=== PATIENT | male | born 1955 | race Caucasian/White ===

== ENCOUNTER → 2017-05-04 | Outpatient (CLI) | payer BC ==
[~2017-05-04] MED LIST: AUGMENTIN 875875 MG PO; CLARITIN10 MG PO; CRESTOR10 MG PO; DILTIAZEM ER120 MG PO; DILTIAZEM240 MG PO; DULE1ARO1 INH; DULERA100 PO; FISH OIL 1,2001 EACH PO; MSM1000 M3 PO; NEXIUM I.V.40 MG PO; PEPCID20 MG PO; PROAIR HFA0.09 MG/AC PO; TRULICITY0.75 MG/0. SC; VITAMIN E400 UNIT PO; ZOCOR20 MG; ZOFRAN4 MG PO
== END | disposition home or self-care (01) ==
LOC: US 07:06
DX: K76.0 Fatty (change of) liver, not elsewhere classified (principal); K80.20 Calculus of gallbladder without cholecystitis without obstruction

== ENCOUNTER 2018-03-14 11:50 | Inpatient (IN) | payer BC ==
[~2018-03-14] VITALS: Ht 180.3 cm; Wt 94.4 kg
--- NOTE | ~2018-03-14 | EKG ---
[place], [place] ELECTROCARDIOGRAM REPORT NAME: PRINCE IBARRA UNIT #: [id number] ROOM: 507 DOCTOR: ARVIND DRAFT REPORT BIRTHDATE: [birth year] [facility] Test Date: 2018-03-14 Test Time: 16:31:59 Pat Name: PRINCE IBARRA Department: Room: Gender: M Addictions Counselor Assistant: ARMAND : 1955 Requested By: TERRY CLARK Order Number: [id number] Reading MD: Jason Shin MD Measurements Intervals [place] Rate: 56 P: 76 RI: 154 QRS: 52 QRSD: 85 T: 51 QT: 432 QTc: 417 Interpretive Statements Sinus rhythm Supraventricular bigeminy Minimal ST depression, anterolateral leads Baseline wander in lead(s) V1 No change from earlier ECG this date. Electronically Signed On 03-14-2018 21:05:40 PDT by Jason Shin MD CM:EKGRPT:ELECTROCARDIOGRAM REPORT 1631 04 TERRY SAMUELS DRAFT REPORT TERRY CLARK MD
--- NOTE | ~2018-03-14 | EKG ---
[place], [place] ELECTROCARDIOGRAM REPORT NAME: PRINCE IBARRA UNIT #: [id number] ROOM: 507 DOCTOR: ARVIND DRAFT REPORT BIRTHDATE: [birth year] [facility] Test Date: 2018-03-14 Test Time: 12:09:03 Pat Name: PRINCE IBARRA Department: Room: Gender: Drawer Maker: KINZA : 1955 Requested By: TERRY CLARK Order Number: [id number] Reading MD: Jason Shin MD Measurements Intervals [place] Rate: 65 P: 69 CT: 155 QRS: 39 QRSD: 83 T: 30 QT: 427 QTc: 444 Interpretive Statements Sinus rhythm Supraventricular bigeminy Abnormal inferior Q waves Electronically Signed On 03-14-2018 20:53:00 PDT by Jason Shin MD CM:EKGRPT:ELECTROCARDIOGRAM REPORT [id number] 52 TERRY SAMUELS DRAFT REPORT TERRY CLARK MD
--- NOTE | ~2018-03-14 | PR ---
[place], [place] PROGRESS NOTE NAME: PRINCE IBARRA [facility] #: [id number] UNIT #: [id number] ROOM: 504 DOCTOR: BRANNON LAMB MD BIRTHDATE: [birth year] DOS: 03/15/2018 CARDIOLOGY PROGRESS NOTE SUBJECTIVE: The patient was seen today on 03/15/2018 in the Cardiology Department just prior to his stress test. He is a 62-year-old man who has several risk factors for coronary artery disease and presented with typical chest discomfort as well as severe elevation in his blood pressure. Serial cardiac biomarkers were normal. His medications were adjusted and his blood pressure is coming under control. In order to evaluate him further, we will proceed with a stress test today. PHYSICAL EXAMINATION: VITAL SIGNS: His pulse is 63 and regular, blood pressure is 152/81. He is afebrile. NECK: Supple. He has no jugular distention. Carotids are full. LUNGS: Respirations are unlabored. His chest is clear to auscultation and percussion. HEART: Has regular rhythm and S4 gallop, but no S3 or murmur. ABDOMEN: Soft. EXTREMITIES: Showed no edema. IMPRESSION: 1. Atypical chest pain. 2. Essential hypertension, out of control. 3. Type 2 diabetes mellitus. 4. Gastroesophageal reflux disease. 5. Chronic obstructive pulmonary disease. PLAN: We will proceed with an exercise myocardial perfusion study. Further recommendations will depend upon the results of the stress test. We will need to continue working on controlling his blood pressure. BRANNON LAMB MD CM:PNTRANS [id number] BRANNON LAMB MD 03/15/18 1046 interface
--- NOTE | ~2018-03-14 | EKG ---
[place], [place] ELECTROCARDIOGRAM REPORT NAME: PRINCE IBARRA UNIT #: [id number] ROOM: 507 DOCTOR: ARVIND DRAFT REPORT BIRTHDATE: [birth year] [facility] Test Date: 2018-03-14 Test Time: 18:03:07 Pat Name: PRINCE IBARRA Department: Room: Gender: M Security Screener: ARMAND : 1955 Requested By: TERRY CLARK Order Number: [id number] Reading MD: Jason Shin MD Measurements Intervals [place] Rate: 60 P: 63 AL: 151 QRS: 53 QRSD: 87 T: 49 QT: 424 QTc: 424 Interpretive Statements Sinus rhythm Supraventricular bigeminy Abnormal R-wave progression, early transition No change from earlier ECG this date. Electronically Signed On 03-14-2018 21:09:10 PDT by Jason Shin MD CM:EKGRPT:ELECTROCARDIOGRAM REPORT 02 08 TERRY SAMUELS DRAFT REPORT TERRY CLARK MD
[2018-03-14 11:52] VITALS: BP 173/80
[2018-03-14] MEDS ORDERED: ZYRTEC10 M3 PO (12:08)
[2018-03-14 12:15] LABS: BASO # 0.1 10*3/uL (0.0-0.1); BASO % 0.8 % (0.0-1.0); EOS # 0.1 10*3/uL (0.0-0.4); HEMATOCRIT 46.2 % (42.0-52.0); HEMOGLOBIN 15.8 g/dl (14.0-18.0); LYMPH # 2.9 10*3/uL (1.3-4.4); LYMPH % 32.8 % (27.0-41.0); MEAN CELL VOLUME 90.4 fl (80.0-94.0); MEAN CORPUSCULAR HGB 30.9 pg (27.0-31.0); MEAN CORPUSCULAR HGB CONC 34.2 g/dl (33.0-37.0); MEAN PLATELET VOLUME 11.4 fl (9.6-12.3); MONO # 0.5 10*3/uL (0.1-1.0); NEUT # 5.2 10*3/uL (2.3-7.9); NEUT % 59.2 % (47.0-73.0); PLATELET COUNT AUTOMATED 286 10*3/uL (130-400); RED BLOOD COUNT 5.11 10*6/uL (4.50-5.90); WHITE BLOOD COUNT 8.8 10*3/uL (4.8-10.8)
[2018-03-14 12:24] LABS: ACT PARTIAL THROMBO TIME 23.5 SECONDS (20.8-31.5)
[2018-03-14 12:33] LABS: ALBUMIN 4.3 gm/dl (3.1-4.5); ALKALINE PHOSPHATASE 115 U/L (45-117); BUN 12 mg/dl (7-24); CHLORIDE 104 mmol/L (98-107); CREATININE 1.22 mg/dL (0.70-1.30); POTASSIUM 4.5 mmol/L (3.5-5.1); SGOT/AST 43 IU/L (3-35); SGPT/ALT 117 U/L (12-78); SODIUM 140 mmol/L (136-145); TOTAL PROTEIN 7.3 gm/dL (6.4-8.2)
[2018-03-14 12:34] VITALS: BP 161/86
[2018-03-14 12:35] LABS: TROPONIN I < 0.015 ng/ml (<0.045)
[2018-03-14] MEDS ORDERED: Lopressor25 MG PO (13:27)
[2018-03-14] MEDS ORDERED: OMEPRAZOLE40 MG PO (13:27)
[2018-03-14] MEDS ORDERED: PROAIR HFA8.5 GM INH (13:58)
[2018-03-14 14:00] VITALS: BP 170/74
[2018-03-14] MEDS ORDERED: B12,B-12,B 12500 MC1 PO (14:00)
[2018-03-14 16:00] VITALS: BP 154/80
[2018-03-14 20:00] VITALS: BP 157/83
[2018-03-15] VITALS: BP 142/78
[2018-03-15 06:30] LABS: BASO # 0.1 10*3/uL (0.0-0.1); BASO % 0.6 % (0.0-1.0); EOS # 0.2 10*3/uL (0.0-0.4); EOS % 1.2 % (1.0-4.0); HEMATOCRIT 50.3 % (42.0-52.0); HEMOGLOBIN 17.3 g/dl (14.0-18.0); LYMPH # 4.1 10*3/uL (1.3-4.4); LYMPH % 33.3 % (27.0-41.0); MEAN CELL VOLUME 89.7 fl (80.0-94.0); MEAN CORPUSCULAR HGB 30.8 pg (27.0-31.0); MEAN CORPUSCULAR HGB CONC 34.4 g/dl (33.0-37.0); MEAN PLATELET VOLUME 11.5 fl (9.6-12.3); MONO # 0.8 10*3/uL (0.1-1.0); MONO % 6.3 % (3.0-9.0); NEUT # 7.1 10*3/uL (2.3-7.9); NEUT % 58.3 % (47.0-73.0); PLATELET COUNT AUTOMATED 294 10*3/uL (130-400); RED BLOOD COUNT 5.61 10*6/uL (4.50-5.90); RED CELL DISTRI WIDTH 12.1 % (0-14.5); WHITE BLOOD COUNT 12.2 10*3/uL (4.8-10.8)
[2018-03-15 06:51] LABS: ALBUMIN 4.2 gm/dl (3.1-4.5); ALKALINE PHOSPHATASE 119 U/L (45-117); BUN 13 mg/dl (7-24); CHLORIDE 101 mmol/L (98-107); CHOLESTEROL 298 mg/dL (<200); CREATININE 1.34 mg/dL (0.70-1.30); FREE T4 1.02 ng/dl (0.76-1.46); HDL CHOLESTEROL 31 mg/dl (40-60); PHOSPHOROUS 3.8 mg/dL (2.5-4.9); SGOT/AST 38 IU/L (3-35); SGPT/ALT 120 U/L (12-78); SODIUM 140 mmol/L (136-145); TOTAL PROTEIN 7.5 gm/dL (6.4-8.2); TRIGLYCERIDES 423 mg/dl (<150)
[2018-03-15 08:00] VITALS: BP 152/81
[2018-03-15 08:44] LABS: VITAMIN D, 25-HYDROXY 29.3 ng/mL (30-100)
[2018-03-15 12:00] VITALS: BP 148/76
[2018-03-15] MEDS ORDERED: LISINOPRIL10 M1 PO (14:27)
[2018-03-15] MEDS ORDERED: FENOFIBRATE160 MG PO (14:27)
[2018-03-16 10:07] LABS: HEPATITIS B SURFACE AG Negative (Negative); HEPATITIS C VIRUS ANTIBODY 0.1 s/co (0.0-0.9)
== END 2018-03-15 15:39 | disposition home or self-care (01) | DRG 313 ==
LOC: ED 11:50 → 5E 12:58 → EDHOLD 12:58 → 5E 13:24
PROVIDERS: Emergency Medicine; Registered Nurse
PROC: 4A02XM4 Measurement of Cardiac Total Activity, External Approach (ICD-10-PCS; principal; 2018-03-15)
DX: R07.89 Other chest pain (principal); E11.22 Type 2 diabetes mellitus with diabetic chronic kidney disease; K76.0 Fatty (change of) liver, not elsewhere classified; N18.3 Chronic kidney disease, stage 3 (moderate); E11.65 Type 2 diabetes mellitus with hyperglycemia; E78.00 Pure hypercholesterolemia, unspecified; R74.8 Abnormal levels of other serum enzymes; K21.9 Gastro-esophageal reflux disease without esophagitis; J44.9 Chronic obstructive pulmonary disease, unspecified; R74.0 Nonspecific elevation of levels of transaminase and lactic acid dehydrogenase [LDH]; I12.9 Hypertensive chronic kidney disease with stage 1 through stage 4 chronic kidney disease, or unspecified chronic kidney disease; Z82.49 Family history of ischemic heart disease and other diseases of the circulatory system; Z83.3 Family history of diabetes mellitus; Z80.9 Family history of malignant neoplasm, unspecified; Z79.899 Other long term (current) drug therapy

== ENCOUNTER 2019-07-04 09:26 | Inpatient (IN) | payer BC, MEDICARE, OTHER ==
[2019-07-04] VITALS (8 sets, daily range): BP systolic 151–178; BP diastolic 74–110
[~2019-07-04] VITALS: Ht 180.3 cm; Wt 94.1 kg
[~2019-07-04 09:26] MED LIST changes: +B12,B-12,B 12500 MC1 PO; +FENOFIBRATE160 MG PO; +LISINOPRIL10 M1 PO; +Lopressor25 MG PO; +OMEPRAZOLE40 MG PO; +PROAIR HFA8.5 GM INH; +ZYRTEC10 M3 PO
--- NOTE | 2019-07-04 10:00 | NUR ---
PATIENT DENIES ANY WOUNDS AT THIS TIME. A&OX4.
[2019-07-04 10:13] LABS: BASO # 0.1 10*3/uL (0.0-0.1); BASO % 0.8 % (0.0-1.0); EOS # 0.2 10*3/uL (0.0-0.4); EOS % 1.7 % (1.0-4.0); HEMATOCRIT 44.7 % (42.0-52.0); HEMOGLOBIN 15.4 g/dl (14.0-18.0); LYMPH # 2.1 10*3/uL (1.3-4.4); LYMPH % 24.1 % (27.0-41.0); MEAN CELL VOLUME 92.4 fl (80.0-94.0); MEAN CORPUSCULAR HGB 31.8 pg (27.0-31.0); MEAN CORPUSCULAR HGB CONC 34.5 g/dl (33.0-37.0); MEAN PLATELET VOLUME 11.2 fl (9.6-12.3); MONO # 0.8 10*3/uL (0.1-1.0); MONO % 9.6 % (3.0-9.0); NEUT # 5.6 10*3/uL (2.3-7.9); NEUT % 63.5 % (47.0-73.0); PLATELET COUNT AUTOMATED 331 10*3/uL (130-400); RED BLOOD COUNT 4.84 10*6/uL (4.50-5.90); RED CELL DISTRI WIDTH 12.2 % (0-14.5); WHITE BLOOD COUNT 8.8 10*3/uL (4.8-10.8)
[2019-07-04 10:26] LABS: ACT PARTIAL THROMBO TIME 24.4 SECONDS (20.0-32.1); INTERNATIONAL NORM RATIO 0.9 (2.0-3.5)
[2019-07-04 10:30] LABS: ALBUMIN 4.1 gm/dl (3.1-4.5); ALKALINE PHOSPHATASE 68 U/L (45-117); BUN 13 mg/dl (7-24); CHLORIDE 105 mmol/L (98-107); CREATININE 1.37 mg/dL (0.70-1.30); LIPASE 291 U/L (73-393); POTASSIUM 4.3 mmol/L (3.5-5.1); SGOT/AST 69 IU/L (3-35); SGPT/ALT 176 U/L (12-78); SODIUM 138 mmol/L (136-145); TOTAL PROTEIN 7.4 gm/dL (6.4-8.2)
[2019-07-04 10:34] LABS: TROPONIN I < 0.015 ng/ml (<0.045)
--- NOTE | 2019-07-04 12:05 | NUR ---
DR CABEZAS NOTIFIED OF PATIENTS BP 164/93 AND THE HYDRALAZINE WAS HELD BY THIS NURSE PER BP RESULT. DR CABEZAS STATES HE WILL CALL DR GUTIERRES AND LET HIM KNOW IT WAS HELD AND TO CANCEL THE ORDER.
--- NOTE | 2019-07-04 13:05 | NUR ---
A 63, admitted to 4E, under the services of MAMADOU Rivas DO with a diagnosis of UNCONTROLLED HTN, ANGINAL EQUIVALENT. Chief complaint is HIGH BP, LEFT ARM PAIN. Patient arrived via ambulatory from ER. Monitor applied. Initial assessment completed. Vital signs taken and recorded. MAMADOU RIVAS DO notified of admission to the unit. Orders received. See assessment for past medical history, medications and allergies. Patient and/or family oriented to unit. [facility] visitation policy reviewed. Clothing/patient valuable form completed. PEG DRIVER
[2019-07-04] MEDS ORDERED: ACYCLOVIR400 MG PO (13:23)
[2019-07-04] MEDS ORDERED: NORVASC5 MG PO (13:24)
[2019-07-04] MEDS ORDERED: GLUCOPHAGE500 M1 PO (13:24)
--- NOTE | 2019-07-04 13:24 | NUR ---
MED REC UPDATED WITH LIST PROVIDED BY PT.
--- NOTE | 2019-07-04 14:50 | NUR ---
DR THAKKAR MADE AWARE OF NEW CONSULT. ORDERS RECEIVED.
[2019-07-05] VITALS: BP 145/74
--- NOTE | 2019-07-05 01:11 | NUR ---
24 HR chart check completed.
[2019-07-05 06:16] LABS: BASO # 0.1 10*3/uL (0.0-0.1); BASO % 0.5 % (0.0-1.0); EOS # 0.1 10*3/uL (0.0-0.4); EOS % 1.1 % (1.0-4.0); HEMOGLOBIN 15.1 g/dl (14.0-18.0); LYMPH # 2.7 10*3/uL (1.3-4.4); LYMPH % 21.6 % (27.0-41.0); MEAN CELL VOLUME 93.9 fl (80.0-94.0); MEAN CORPUSCULAR HGB 31.5 pg (27.0-31.0); MEAN CORPUSCULAR HGB CONC 33.6 g/dl (33.0-37.0); MEAN PLATELET VOLUME 11.7 fl (9.6-12.3); MONO # 1.1 10*3/uL (0.1-1.0); MONO % 8.6 % (3.0-9.0); NEUT # 8.4 10*3/uL (2.3-7.9); PLATELET COUNT AUTOMATED 321 10*3/uL (130-400); RED BLOOD COUNT 4.79 10*6/uL (4.50-5.90); RED CELL DISTRI WIDTH 12.3 % (0-14.5); WHITE BLOOD COUNT 12.4 10*3/uL (4.8-10.8)
[2019-07-05 06:42] LABS: CHLORIDE 102 mmol/L (98-107); POTASSIUM 3.8 mmol/L (3.5-5.1); SODIUM 138 mmol/L (136-145)
[2019-07-05 06:58] LABS: BUN 16 mg/dl (7-24); CREATININE 1.26 mg/dL (0.70-1.30); PHOSPHOROUS 3.5 mg/dL (2.5-4.9)
--- NOTE | 2019-07-05 09:00 | NUR ---
Tour Conductor in to talk to patient. Patient states lives at home with . There are few steps in the home. Physician: nabeel sutton Pharmacy: [facility] Home health services: none Patient's level of ADLs: INDEPENDENT Patient has working utilities: all working DME: none Follow-up physician's appointment after d/c: will be made by hospitalist nurse director upon discharge Does patient want to access PORTAL?: no Discharge plan discussed with patient, he lives at home with , he states he is independent in adls and ambulation, he states he will return home when medically stable and declines any hoem needs, case management will follow. KAIA HARRIS
--- NOTE | 2019-07-05 09:10 | NUR ---
PT RETURNED FROM STRESS TEST, INFORMED PT NEEDS TO REMAIN NPO AND HAS TO RETURN TO CARDIAC REHAB WHEN DR LEMOS ARRIVES.
[2019-07-05 09:30] VITALS: BP 142/82
--- NOTE | 2019-07-05 10:15 | NUR ---
INFORMED CONSENT OBTAINED FOR LEXISCAN NUCLEAR STRESS TEST WITH DR. LEMOS. RESTING EKG NSR WITH A RESTING HR OF 98 WITH BP 140/92. LUNGS CLEAR WITH SPO2 OF 96% ON ROOM AIR. PT COMPLETED A 1:00 LEXISCAN PROTOCOL RECEIVING LEXISCAN 0.4 MG IV OVER 10 SECONDS. HAD NO CHEST PAIN. DID DEVELOP NONDIAGNOSTIC ST CHANGES. HAD C/O "WARM AND WEIRD FEELING" THAT SUBSIDED IN RECOVERY. HAD A PEAK HR OF 149 WITH BP OF 144/80. LAST RECOVERY HR OF 119 WITH BP OF 150/78. AWAITING SCANNING IN STABLE CONDITION.
[2019-07-05 12:00] VITALS: BP 170/85
[2019-07-05] MEDS ORDERED: LISINOPRIL20 MG PO (15:51)
[2019-07-05 16:00] VITALS: BP 151/74
[2019-07-05] MEDS ORDERED: ASPIR LOW81 MG PO (17:37)
[2019-07-05] MEDS ORDERED: LIPITOR80 MG PO (17:37)
[2019-07-05] MEDS ORDERED: TOPROL XL25 MG PO (17:37)
[2019-07-05] MEDS ORDERED: IMDUR SA30 MG PO (17:37)
--- NOTE | 2019-07-05 18:25 | NUR ---
Discharge instructions reviewed with patient/family. Patient receptive and verbalizes understanding. Follow-up care arranged. Written instructions given to patient/family. IV site and classroom monitor removed. PEG DRIVER
== END 2019-07-05 18:25 | disposition home or self-care (01) | DRG 305 ==
LOC: ED 09:26 → EDHOLD 11:51 → 4E 11:51
PROVIDERS: Emergency Medicine; Internal Medicine; ADMIT Internal Medicine
PROC: 3E073KZ Introduction of Other Diagnostic Substance into Coronary Artery, Percutaneous Approach (ICD-10-PCS; principal; 2019-07-05)
PROC: 4A02XM4 Measurement of Cardiac Total Activity, External Approach (ICD-10-PCS; principal; 2019-07-05)
DX: I16.1 Hypertensive emergency (principal); E87.2 Acidosis; I20.8 Other forms of angina pectoris; R74.0 Nonspecific elevation of levels of transaminase and lactic acid dehydrogenase [LDH]; N18.3 Chronic kidney disease, stage 3 (moderate); R74.8 Abnormal levels of other serum enzymes; I25.9 Chronic ischemic heart disease, unspecified; K76.0 Fatty (change of) liver, not elsewhere classified; E11.22 Type 2 diabetes mellitus with diabetic chronic kidney disease; K21.9 Gastro-esophageal reflux disease without esophagitis; J44.9 Chronic obstructive pulmonary disease, unspecified; E78.00 Pure hypercholesterolemia, unspecified; E11.65 Type 2 diabetes mellitus with hyperglycemia; I12.9 Hypertensive chronic kidney disease with stage 1 through stage 4 chronic kidney disease, or unspecified chronic kidney disease; Z82.49 Family history of ischemic heart disease and other diseases of the circulatory system; Z80.8 Family history of malignant neoplasm of other organs or systems; Z79.899 Other long term (current) drug therapy; Z87.891 Personal history of nicotine dependence

== ENCOUNTER → 2020-05-01 | Outpatient (CLI) | payer MEDICARE, OTHER ==
[~2020-05-01] MED LIST changes: +ACYCLOVIR400 MG PO; +ASPIR LOW81 MG PO; +GLUCOPHAGE500 M1 PO; +IMDUR SA30 MG PO; +LIPITOR80 MG PO; +LISINOPRIL20 MG PO; +NORVASC5 MG PO; +TOPROL XL25 MG PO
== END | disposition home or self-care (01) ==
LOC: COVID19 00:32
PROVIDERS: ATTEND Nurse Practitioner Primary Care
DX: Z11.59 Encounter for screening for other viral diseases (principal); R53.83 Other fatigue; R19.7 Diarrhea, unspecified; R11.2 Nausea with vomiting, unspecified

== ENCOUNTER 2020-07-21 06:23 | Emergency (ER) | payer MEDICARE, OTHER ==
[~2020-07-21] VITALS: Ht 180.3 cm; Wt 97.5 kg
[2020-08-04] MEDS ORDERED: CLARITIN10 MG PO (06:19)
[2020-08-04] MEDS ORDERED: TRULICITY0.75 MG/0. SC (06:20)
[2020-08-04] MEDS ORDERED: SEREVENT DISKU50 MCG INH (06:20)
== END 2020-07-21 07:55 | disposition home or self-care (01) ==
LOC: ED 06:23
DX: I12.9 Hypertensive chronic kidney disease with stage 1 through stage 4 chronic kidney disease, or unspecified chronic kidney disease (principal); E11.22 Type 2 diabetes mellitus with diabetic chronic kidney disease; N18.30 Chronic kidney disease, stage 3 unspecified; J44.9 Chronic obstructive pulmonary disease, unspecified; K21.9 Gastro-esophageal reflux disease without esophagitis; E78.00 Pure hypercholesterolemia, unspecified; Z79.899 Other long term (current) drug therapy

== ENCOUNTER → 2020-08-04 | Outpatient (CLI) | payer MEDICARE, OTHER ==
[~2020-08-04] MED LIST changes: +SEREVENT DISKU50 MCG INH
--- NOTE | 2020-08-04 07:30 | NUR ---
INFORMED CONSENT SIGNED FOR LEXISCAN STRESS TEST WITH DR. THAKKAR. RESTING EKG NSR, HR 75, BP 152/86. PULSE OX 95% AND LUNGS CLEAR BILATERALLY. COMPLETED ONE MINUTE OF LEXISCAN PROTOCOL RECEIVNG LEXISCAN 0.4MG OVER [address] DEPRESSION PRESENT. PT C/O SOB AND FEELING FAST HEART RATE. LAST RECOVERY HR 109, BP 146/80. WAITING NUCLEAR SCANNING IN STABLE CONDITION.
== END | disposition home or self-care (01) ==
LOC: CARD 00:17
PROVIDERS: ATTEND Internal Medicine Cardiovascular Disease
DX: R00.0 Tachycardia, unspecified (principal); I20.9 Angina pectoris, unspecified; R53.81 Other malaise; R73.03 Prediabetes

== ENCOUNTER 2021-03-04 11:09 | Emergency (ER) | payer MEDICARE, OTHER ==
[~2021-03-04] VITALS: Ht 177.8 cm; Wt 99.5 kg
[2021-03-04 12:00] LABS: BILIRUBIN Negative (Negative); BLOOD Negative (Negative); CLARITY Clear (Clear); COLOR Yellow (Yellow); GLUCOSE 1+ (Negative); KETONE Negative (Negative); LEUKO ESTERASE Negative (Negative); NITRITE Negative (Negative); SPECIFIC GRAVITY 1.025 (1.001-1.030)
[2021-03-04 12:18] LABS: EPITHELIAL CELLS 0-2
[2021-03-04 12:25] LABS: BASO # 0.1 10*3/uL (0.0-0.1); BASO % 0.8 % (0.0-1.0); EOS # 0.1 10*3/uL (0.0-0.4); EOS % 0.9 % (1.0-4.0); HEMATOCRIT 39.8 % (42.0-52.0); LYMPH # 2.3 10*3/uL (1.3-4.4); LYMPH % 28.7 % (27.0-41.0); MEAN CELL VOLUME 93.9 fl (80.0-94.0); MEAN CORPUSCULAR HGB 31.4 pg (27.0-31.0); MEAN CORPUSCULAR HGB CONC 33.4 g/dl (33.0-37.0); MEAN PLATELET VOLUME 11.3 fl (9.6-12.3); MONO # 0.6 10*3/uL (0.1-1.0); MONO % 7.3 % (3.0-9.0); NEUT # 4.9 10*3/uL (2.3-7.9); NEUT % 61.9 % (47.0-73.0); PLATELET COUNT AUTOMATED 346 10*3/uL (130-400); RED BLOOD COUNT 4.24 10*6/uL (4.50-5.90); RED CELL DISTRI WIDTH 12.4 % (0-14.5); WHITE BLOOD COUNT 7.9 10*3/uL (4.8-10.8)
[2021-03-04 12:40] LABS: ALBUMIN 3.8 gm/dl (3.1-4.5); ALKALINE PHOSPHATASE 70 U/L (45-117); BUN 14 mg/dl (7-24); CHLORIDE 110 mmol/L (98-107); CREATININE 1.35 mg/dL (0.70-1.30); LIPASE 360 U/L (73-393); POTASSIUM 4.3 mmol/L (3.5-5.1); SGOT/AST 28 IU/L (3-35); SGPT/ALT 49 U/L (12-78); SODIUM 140 mmol/L (136-145); TOTAL PROTEIN 6.6 gm/dL (6.4-8.2)
== END 2021-03-04 15:26 | disposition home or self-care (01) ==
LOC: ED 11:09
PROVIDERS: Physician Assistant
DX: N23 Unspecified renal colic (principal); Z87.891 Personal history of nicotine dependence; Z79.899 Other long term (current) drug therapy; Z79.82 Long term (current) use of aspirin

== ENCOUNTER → 2021-06-07 | Outpatient (CLI) | payer MEDICARE, OTHER | END | disposition home or self-care (01) | LOC: LAB 07:28 | PROVIDERS: ATTEND Nurse Practitioner Primary Care | DX: R79.89 Other specified abnormal findings of blood chemistry (principal) ==

== ENCOUNTER → 2022-09-13 | Outpatient (CLI) | payer OTHER ==
[~2022-09-13] MED LIST changes: +BREO ELLIPTA 11 EACH INH; +D3 PO; +FARXIGA5 M1 PO; +ZINC50 M4 PO
== END | disposition home or self-care (01) ==
LOC: CARD 00:46
PROVIDERS: ATTEND Internal Medicine Cardiovascular Disease
DX: I20.9 Angina pectoris, unspecified (principal)

== ENCOUNTER → 2023-04-20 | Outpatient (CLI) | payer OTHER ==
[2023-04-20 09:54] LABS: BASO # 0.1 10*3/uL (0.0-0.1); BASO % 0.7 % (0.0-1.0); EOS # 0.1 10*3/uL (0.0-0.4); HEMATOCRIT 47.3 % (42.0-52.0); LYMPH # 3.1 10*3/uL (1.3-4.4); MEAN CORPUSCULAR HGB 31.7 pg (27.0-31.0); MEAN CORPUSCULAR HGB CONC 33.4 g/dl (33.0-37.0); MONO # 0.6 10*3/uL (0.1-1.0); MONO % 6.7 % (3.0-9.0); NEUT # 4.6 10*3/uL (2.3-7.9); NEUT % 54.4 % (47.0-73.0); PLATELET COUNT AUTOMATED 314 10*3/uL (130-400); RED BLOOD COUNT 4.98 10*6/uL (4.50-5.90); RED CELL DISTRI WIDTH 12.9 % (0-14.5); WHITE BLOOD COUNT 8.4 10*3/uL (4.8-10.8)
[2023-04-20 10:20] LABS: ALKALINE PHOSPHATASE 76 U/L (46-116); BUN 13 mg/dl (9-23); CHLORIDE 106 mmol/L (98-107); CHOLESTEROL 125 mg/dL (<200); LDL CHOLESTEROL 64 mg/dL (9-159); POTASSIUM 4.1 mmol/L (3.4-5.1); SGPT/ALT 32 U/L (10-49); TOTAL PROTEIN 6.6 gm/dL (6.0-8.0); TRIGLYCERIDES 122 mg/dl (<150)
[2023-04-20 10:25] LABS: VITAMIN D, 25-HYDROXY 58.5 ng/mL (30-100)
== END | disposition home or self-care (01) ==
LOC: LAB 09:27
PROVIDERS: ATTEND Nurse Practitioner Primary Care
DX: Z12.5 Encounter for screening for malignant neoplasm of prostate (principal); E11.9 Type 2 diabetes mellitus without complications; E78.5 Hyperlipidemia, unspecified; E55.9 Vitamin D deficiency, unspecified

== ENCOUNTER 2024-08-29 21:48 | Observation (INO) | payer OTHER ==
[~2024-08-29] VITALS: Ht 185.4 cm; Wt 90.7 kg
[2024-08-29 22:21] VITALS: BP 166/76
[2024-08-29 23:39] VITALS: BP 159/86
[2024-08-29 23:40] VITALS: BP 159/86
[2024-08-30 00:11] LABS: BASO # 0.1 10*3/uL (0.0-0.1); BASO % 0.6 % (0.0-1.0); EOS # 0.2 10*3/uL (0.0-0.4); HEMATOCRIT 45.5 % (42.0-52.0); MEAN CORPUSCULAR HGB 30.7 pg (27.0-31.0); MEAN PLATELET VOLUME 10.8 fl (9.6-12.3); MONO # 0.6 10*3/uL (0.1-1.0); MONO % 7.6 % (3.0-9.0); NEUT # 4.8 10*3/uL (2.3-7.9); NEUT % 58.1 % (47.0-73.0); PLATELET COUNT AUTOMATED 333 10*3/uL (130-400); RED BLOOD COUNT 4.89 10*6/uL (4.50-5.90); RED CELL DISTRI WIDTH 12.4 % (0-14.5); WHITE BLOOD COUNT 8.3 10*3/uL (4.8-10.8)
[2024-08-30 00:30] LABS: BUN 12 mg/dl (9-23); CHLORIDE 105 mmol/L (98-107); POTASSIUM 3.9 mmol/L (3.4-5.1)
[2024-08-30 00:31] LABS: ALKALINE PHOSPHATASE 81 U/L (46-116); BUN 13 mg/dl (9-23); CHLORIDE 106 mmol/L (98-107); POTASSIUM 3.9 mmol/L (3.4-5.1); SGPT/ALT 34 U/L (5-49); TOTAL PROTEIN 6.8 gm/dL (6.0-8.0)
[2024-08-30 00:33] LABS: ACT PARTIAL THROMBO TIME 24.7 SECONDS (20.0-32.1)
[2024-08-30 01:51] VITALS: BP 154/87
[2024-08-30] MEDS ORDERED: METOPROLOL SUCC25 M2 PO (03:29)
[2024-08-30] MEDS ORDERED: FARXIGA10 M1 PO (03:30)
[2024-08-30] MEDS ORDERED: BISACODYL 5 MG TAB PO PRN (03:30)
[2024-08-30] MEDS ORDERED: ACETAMINOPHEN 325 MG TAB PO PRN (03:30)
[2024-08-30] MEDS ORDERED: Ondansetron Hydrochloride 4 MG/2 ML VIAL IV PRN (03:30)
[2024-08-30] MEDS ORDERED: TEMAZEPAM 15 MG CAP PO PRN (03:30)
[2024-08-30] MEDS ORDERED: LISINOPRIL30 MG PO (03:30)
[2024-08-30] MEDS ORDERED: BISACODYL 10 MG SUPP R PRN (03:30)
[2024-08-30] MEDS ORDERED: Magnesium Hydroxide 30 ML UDC PO PRN (03:30)
[2024-08-30] MEDS ORDERED: ACETAMINOPHEN 650 MG SUPP R PRN (03:30)
[2024-08-30] MEDS ORDERED: FENOFIBRATE145 M1 PO (03:31)
[2024-08-30] MEDS ORDERED: METFORMIN HYDR500 MG PO (03:32)
[2024-08-30 03:50] VITALS: BP 151/80
[2024-08-30] MEDS ORDERED: OZEMPIC0.25 MG/03 SQ (03:51)
[2024-08-30] MEDS ORDERED: DEXTROSE 10 % IN WATER 250 ML IV PRN (04:25)
[2024-08-30 05:49] LABS: BUN 13 mg/dl (9-23); CHLORIDE 106 mmol/L (98-107); POTASSIUM 3.8 mmol/L (3.4-5.1)
[2024-08-30] MEDS ORDERED: OMEPRAZOLE 20 MG CAP PO SCH (06:00)
[2024-08-30 06:14] LABS: BASO # 0.1 10*3/uL (0.0-0.1); BASO % 0.6 % (0.0-1.0); EOS # 0.2 10*3/uL (0.0-0.4); EOS % 1.7 % (1.0-4.0); HEMATOCRIT 45.8 % (42.0-52.0); MEAN CELL VOLUME 92.7 fl (80.0-94.0); MEAN CORPUSCULAR HGB 31.2 pg (27.0-31.0); MEAN CORPUSCULAR HGB CONC 33.6 g/dl (33.0-37.0); MEAN PLATELET VOLUME 11.2 fl (9.6-12.3); MONO # 0.6 10*3/uL (0.1-1.0); MONO % 6.5 % (3.0-9.0); NEUT # 5.7 10*3/uL (2.3-7.9); PLATELET COUNT AUTOMATED 328 10*3/uL (130-400); RED BLOOD COUNT 4.94 10*6/uL (4.50-5.90); RED CELL DISTRI WIDTH 12.4 % (0-14.5); WHITE BLOOD COUNT 9.3 10*3/uL (4.8-10.8)
[2024-08-30 06:29] VITALS: BP 151/80
[2024-08-30] MEDS ORDERED: INSULIN LISPRO 1 UNIT/0.01 ML SQ SCH (07:30)
[2024-08-30 08:15] LABS: VITAMIN D, 25-HYDROXY 48.9 ng/mL (30-100)
[2024-08-30 09:00] VITALS: BP 161/90
[2024-08-30] MEDS ORDERED: Albuterol Sulfate 2.5 MG/3 ML VIAL NEB PRN (09:15)
[2024-08-30] MEDS ORDERED: BUDESONIDE 0.5 MG AMP NEB SCH (09:40)
[2024-08-30] MEDS ORDERED: Albuterol Sulfate 2.5 MG/3 ML VIAL NEB SCH (09:40)
[2024-08-30] MEDS ORDERED: ISOSORBIDE MONONITRATE 30 MG TAB PO SCH (10:00)
[2024-08-30] MEDS ORDERED: Enoxaparin Sodium 40 MG/0.4 ML SYR SC SCH (10:00)
[2024-08-30] MEDS ORDERED: LISINOPRIL 10 MG TAB PO SCH (10:00)
[2024-08-30] MEDS ORDERED: FENOFIBRATE 145 MG TAB PO SCH (10:00)
[2024-08-30] MEDS ORDERED: METOPROLOL SUCCINATE XR 25 MG TAB PO SCH (10:00)
[2024-08-30] MEDS ORDERED: ATORVASTATIN CALCIUM 80 MG TAB PO SCH (10:00)
[2024-08-30] MEDS ORDERED: ACYCLOVIR 400 MG TAB PO SCH (10:00)
[2024-08-30] MEDS ORDERED: LORATADINE 10 MG TAB PO SCH (10:00)
[2024-08-30] MEDS ORDERED: ASPIRIN ENTERIC COATED 81 MG TAB PO SCH (10:00)
[2024-08-30 14:31] VITALS: BP 136/70
== END 2024-08-30 18:17 | disposition home or self-care (01) ==
LOC: ED 21:48 → EDHOLD 08-30 02:50
PROVIDERS: Emergency Medicine; ADMIT Student in an Organized Health Care Education/Training Program; ATTEND Student in an Organized Health Care Education/Training Program
DX: R07.89 Other chest pain (principal); I25.10 Atherosclerotic heart disease of native coronary artery without angina pectoris; I10 Essential (primary) hypertension; E78.5 Hyperlipidemia, unspecified; E11.65 Type 2 diabetes mellitus with hyperglycemia; K21.9 Gastro-esophageal reflux disease without esophagitis; J44.9 Chronic obstructive pulmonary disease, unspecified; E78.00 Pure hypercholesterolemia, unspecified; K76.0 Fatty (change of) liver, not elsewhere classified; Z79.84 Long term (current) use of oral hypoglycemic drugs; Z79.82 Long term (current) use of aspirin; Z79.899 Other long term (current) drug therapy